=== PATIENT | male | born 1965 | race Caucasian/White ===

== ENCOUNTER 2021-05-11 07:19 | Emergency (ER) | payer BC, OTHER ==
[2021-05-11] MEDS ORDERED: Acetaminophen 500 MG TAB ONE (07:56)
[2021-05-11] MEDS ORDERED: Boostrix 0.5 ML (Tdap) VIAL ONE (08:13)
[2021-05-11] MEDS ORDERED: Bacitracin 1 PK ONE (10:25)
== END 2021-05-11 10:28 | disposition home or self-care (01) ==
LOC: ERS 07:19
DX: S60.212A Contusion of left wrist, initial encounter (principal); X58.XXXA Exposure to other specified factors, initial encounter
CPT/HCPCS: 90471; 90715